=== PATIENT | male | born 1995 | race Caucasian/White ===

== ENCOUNTER 2022-08-06 19:44 | Emergency (ER) | payer OTHER ==
[~2022-08-06] VITALS: Ht 170.2 cm; Wt 83.9 kg
--- NOTE | 2022-08-06 20:00 | NUR ---
Patient triaged and placed in waiting room. VSS and patient appears in no acute distress at this time. Accompanied by mother, awaiting available bed, and MD notified of need for MSE.
[2022-08-06 20:09] VITALS: BP_SYST 135
--- NOTE | 2022-08-06 20:14 | NUR ---
DR. ARANA IN TRIAGE WITH PATIENT FOR MSE.
[2022-08-06] MEDS ORDERED: predniSONE 20 MG TABLET PO ONE (20:30)
[2022-08-06] MEDS ORDERED: IPRATROPIUM/ALBUTEROL SULFATE 3 ML AMPUL.NEB (DUONEB) INH ONE (20:30)
--- NOTE | 2022-08-06 20:35 | NUR ---
PT MEDICATED PER MD ORDER. SEE eMAR.
--- NOTE | 2022-08-06 20:46 | NUR ---
PT WITH RT IN TRIAGE FOR BREATHING TX.
--- NOTE | 2022-08-06 21:18 | NUR ---
pt reporting feeling relief after breathing tx.
== END 2022-08-06 21:38 | disposition left against medical advice (07) ==
LOC: SED 19:44
DX: B34.9 Viral infection, unspecified (principal); R06.02 Shortness of breath; R05.9 Cough, unspecified; Z79.899 Other long term (current) drug therapy
CPT/HCPCS: 99283; 94640; J7512